=== PATIENT | female | born 2000 | race African-American/Black ===

== ENCOUNTER 2021-01-06 01:28 | Emergency (ER) | payer OTHER, SELFPAY ==
[2021-01-06] VITALS (15 sets, daily range): BP systolic 116–133; BP diastolic 75–81; PULSE 65–84; RESP 12–23; TEMP 36.6; O2SAT 100
--- NOTE | ~2021-01-06 | XR_ITS ---
EXAMINATION: XR chest 2V DATE: 01/06/2021 02:05 INDICATION: Midline chest pain. TECHNIQUE: Frontal and lateral views of the chest were obtained. COMPARISON: None. FINDINGS: The chest demonstrates clear lungs without pneumonia, pleural effusion, or pneumothorax. Th e heart size is normal. IMPRESSION: 1. No acute cardiopulmonary disease. Reviewed, dictated and finalized at location A.
--- NOTE | 2021-01-06 01:34 | ECG_ITS ---
Measurements Intervals [place] Rate: 72 P: 8 SD: 148 QRS: 30 QRSD: 71 T: 15 QT: 360 QTc: 394 Interpretive Statements SINUS RHYTHM NONSPECIFIC T-WAVE ABNORMALITY- INFERIOR LEADS BORDERLINE ECG Electronically Signed On 01-06-2021 7:15:04 CDT by Isrrael Suarez D.O.
[2021-01-06 02:02] LABS: Basophils Absolute Auto 0.1 K/mm3 (0.0-0.1); Basophils Percent Auto 0.7 % (0.2-1.2); Eosinophils Absolute Auto 0.1 K/mm3 (0-0.3); Eosinophils Percent Auto 1.8 % (0-4.4); Hematocrit 40.6 % (37.0-47.0); Hemoglobin 12.7 g/dL (12.0-15.0); Immature Granulocyte Absolute 0.01 K/mm3 (0.00-0.031); Immature Granulocyte Percent A 0.1 % (0-0.5); Lymphocytes Absolute Auto 2.71 K/mm3 (0.9-3.2); Lymphocytes Percent Auto 40.3 % (18.3-44.2); Mean Corpuscular HGB Conc 31.3 g/dl (32-36); Mean Corpuscular Hemoglobin 23.3 pg (26-34); Mean Corpuscular Volume 74.6 fl (80-100); Monocytes Absolute Auto 0.3 K/mm3 (0.1-0.6); Monocytes Percent Auto 4.9 % (2.6-8.5); Neutrophils Absolute Auto 3.5 K/mm3 (1.3-6.7); Neutrophils Percent Auto 52.2 % (45.5-73.1); Platelet Count Result 226 k/mm3 (150-375); Red Blood Count 5.44 M/mm3 (4.2-5.4); Red Cell Distribution Width 13.9 % (11.5-14.5); White Blood Count 6.7 K/mm3 (4.5-10.0)
[2021-01-06 02:11] LABS: Anion Gap 5 mmol/L (8-16); Blood Urea Nitrogen 12 mg/dL (8-21); Calcium 9.1 mg/dL (8.9-10.7); Carbon Dioxide 27 mmol/L (22-30); Chloride 107 mmol/L (98-107); Estimated CRCL calculation 110 ml/min; Estimated Glomerular Filt Rate > 60; Glucose 105 mg/dL (65-105); Potassium 4.1 mmol/L (3.4-5.0); Sodium 139 mmol/L (134-143)
[2021-01-06 02:23] LABS: Troponin I < 0.012 ng/mL (0.000-0.034)
[2021-01-06 02:38] LABS: Prothrombin Time 13.6 Seconds (11.1-14.7)
--- NOTE | 2021-01-06 02:39 | ED.CHESTPAIN ---
HPI - Chest Pain General Chief Complaint: Chest Pain Stated Complaint: nausea-abd cramps and chest tightness Time Seen by Provider: 01/06/21 02:34 Source: patient Mode of arrival: ambulatory Limitations: no limitations History of Present Illness HPI narrative: Patient is a 20-year-old female complaining of chest pain, midsternal, sharp, 6 out of 10, worse with movement started approximately 2 to 3 weeks ago. Patient denies any shortness of breath, abdominal pain, nausea, vomiting, diaphoresis, fever or chills. Related Data Allergies Allergy/AdvReac Type Severity Reaction Status Date / Time No Known Allergies Allergy Unknown Verified 01/06/21 01:30 Review of Systems Review of Systems: All systems reviewed & are unremarkable except as noted in HPI and below Constitutional: Constitutional: Denies body ache(s), Denies chills, Denies excessive sweating, Denies fatigue, Denies fever(s), Denies headache(s), Denies lethargy, Denies malaise, Denies weakness and Denies weight loss Eyes: Eyes: Denies blurry vision, Denies change in vision and Denies loss of vision ENT: Denies dizziness, Denies ear discharge, Denies headache(s), Denies lip swelling, Denies epistaxis, Denies nasal congestion, Denies neck pain, Denies throat swelling and Denies tongue swelling Cardiovascular: Cardiovascular: Denies chest pain with activity, Denies diaphoresis, Denies rapid heart rate, Denies edema, Denies irregular heart rhythm, Denies lightheadedness, Denies palpitations, Denies dyspnea and Denies dyspnea on exertion Respiratory: Respiratory: Denies chest congestion, Denies cough, Denies hemoptysis, Denies dyspnea and Denies dyspnea on exertion Gastrointestinal: Gastrointestinal: Denies abdominal pain, Denies melena, Denies hematochezia, Denies diarrhea, Denies nausea, Denies vomiting and Denies hematemesis Musculoskeletal: Musculoskeletal: Denies abnormal gait, Denies deformity, Denies joint swelling, Denies limited range of motion, Denies neck pain and Denies numbness Neurologic: Denies Abnormal speech present, Denies abnormal gait, Denies confusion, Denies dizziness, Denies headache(s), Denies focal weakness, Denies loss of vision, Denies numbness, Denies Other visual disturbances, Denies Sensory deficit (Neuro) and Denies weakness Psychiatric: Psychiatric: Denies confusion, Denies depression, Denies auditory hallucinations, Denies homicidal ideation and Denies suicidal ideation Endocrine: Endocrine: Denies cold intolerance, Denies excessive sweating, Denies fatigue, Denies heat intolerance and Denies palpitations Hematologic/Lymphatic: Hematologic/Lymphatic: Denies easy bleeding and Denies easy bruising Allergic/Immunologic: Allergic/Immunologic: Denies lip swelling, Denies throat swelling and Denies tongue swelling PMFSH Comments Past medical history: None Family history: Negative for MD or coronary disease Social history: Non-smoker no EtOH or drug use. Course Vital Signs Vital signs: Vital Signs Pulse Rate 73 01/06/21 01:38 Temperature 36.6 C 01/06/21 01:39 Pulse Rate 77 01/06/21 02:31 Respiratory Rate 20 01/06/21 02:31 Blood Pressure 123/81 01/06/21 02:31 Pulse Oximetry 100 01/06/21 01:39 MDM - Chest Pain MDM Narrative Medical decision making narrative: Heart score: 0, risk of any major coronary event is less than 1%. Patient's chest pain is atypical more likely musculoskeletal in origin. I have reviewed her labs and her chest x-ray. Her CBC chemistry within normal limits. Her cardiac enzymes negative. Her EKG shows no acute ischemia, normal EKG. Her chest x-ray is clear. Patient will be discharged home with a diagnosis of atypical chest pain, musculoskeletal pain. Lab Data Attestation: I reviewed the patient's lab results. Result diagrams: 01/06/21 01:49 01/06/21 01:49 Labs: Lab Results 01/06/21 01/06/21 01/06/21 Range/Units 01:49 01:49 01:49 WBC 6.7 (4.5-10.0) K/mm3 RB
[2021-01-06 02:41] LABS: Partial Thromboplastin Time 29.5 SECONDS (22.3-36.8)
[2021-01-06 03:19] LABS: D Dimer < 0.22 ug/mL (<0.48)
== END 2021-01-06 05:00 | disposition home or self-care (01) ==
PROVIDERS: Emergency Provider Emergency Medicine
DX: R07.89 Other chest pain (principal)
CPT/HCPCS: 36415; 71046; 80048; 84484; 85025; 85380; 85610; 85730; 93005; 99284

== ENCOUNTER 2022-02-27 08:03 | Emergency (ER) | payer OTHER, SELFPAY ==
--- NOTE | ~2022-02-27 | XR_ITS ---
EXAMINATION: XR wrist RT min 3V DATE: 02/27/2022 08:42 INDICATION: Right wrist pain. TECHNIQUE: 4 views of right wrist were obtained. COMPARISON: None. FINDINGS: Bone alignment is normal. No fracture. Joint spaces are well maintained. IMPRESSION: 1. Normal right wrist. Reviewed, dictated and finalized at location A. IMPRESSION: 1. Normal right wrist.
--- NOTE | ~2022-02-27 | US_ITS ---
EXAMINATION: US venous doppler UE RT DATE: 02/27/2022 09:41 INDICATION: Right upper extremity pain TECHNIQUE: Grayscale ultrasound images without and with compression and Doppler ultrasound images of the right upper extremity veins were obtained. COMPARISON: None. FINDINGS: The right internal jugular vein, subclavian vein, axillary vein, brachial veins, basilic vein, cephal ic vein, radial vein, and ulnar vein are patent. IMPRESSION: 1. No evidence of deep venous thrombosis. Reviewed, dictated and finalized at location A.
--- NOTE | ~2022-02-27 | XR_ITS ---
EXAMINATION: XR elbow RT min 3V DATE: 02/27/2022 08:42 INDICATION: Right elbow pain. TECHNIQUE: 4 views of right elbow were obtained. COMPARISON: None. FINDINGS: Bone alignment is normal. No fracture. Joint spaces are normal. There is no elbow joint eff usion. IMPRESSION: 1. Elbow joint effusion. No fracture identified. Reviewed, dictated and finalized at location A.
[2022-02-27 08:09] VITALS: BP 113/83; PULSE 84; RESP 18; TEMP 37.3; O2SAT 98
[2022-02-27] MEDS: IBUPROFEN 600 MG TABLET PO (08:26)
[2022-02-27 09:57] LABS: Basophils Percent Auto 0.5 % (0.2-1.2); Eosinophils Percent Auto 0.7 % (0-4.4); Hematocrit 44.9 % (37.0-47.0); Hemoglobin 14.1 g/dL (12.0-15.0); Lymphocytes Absolute Auto 2.11 K/mm3 (0.9-3.2); Lymphocytes Percent Auto 34.4 % (18.3-44.2); Mean Corpuscular HGB Conc 31.4 g/dl (32-36); Mean Corpuscular Hemoglobin 23.9 pg (26-34); Monocytes Absolute Auto 0.3 K/mm3 (0.1-0.6); Monocytes Percent Auto 5.1 % (2.6-8.5); Neutrophils Absolute Auto 3.6 K/mm3 (1.3-6.7); Neutrophils Percent Auto 59.3 % (45.5-73.1); Platelet Count Result 224 k/mm3 (150-375); Red Blood Count 5.91 M/mm3 (4.2-5.4); Red Cell Distribution Width 14.4 % (11.5-14.5); White Blood Count 6.1 K/mm3 (4.5-10.0)
[2022-02-27 10:11] LABS: Alanine Aminotransferase 21 U/L (6-35); Albumin Level 4.5 g/dL (3.5-5.1); Alkaline Phosphatase 70 U/L (38-126); Anion Gap 6 mmol/L (8-16); Aspartate Amino Transferase 19 U/L (14-36); Bilirubin,Total 0.2 mg/dL (0.2-1.3); Blood Urea Nitrogen 9 mg/dL (7-17); Calcium 8.9 mg/dL (8.4-10.2); Carbon Dioxide 22 mmol/L (22-30); Chloride 109 mmol/L (98-107); Estimated CRCL calculation 107 ml/min; Estimated Glomerular Filt Rate > 60; Glucose 101 mg/dL (65-110); Potassium 4.1 mmol/L (3.4-5.0); Sodium 137 mmol/L (137-145)
[2022-02-27 10:13] LABS: INR 1.2; Prothrombin Time 14.5 Seconds (11.1-14.7)
[2022-02-27 10:14] LABS: Partial Thromboplastin Time 30.8 SECONDS (22.3-36.8)
[2022-02-27 11:18] LABS: Erythrocyte Sedimentation Rate 1 mm/hr (0-20)
[2022-02-27 11:19] LABS: CRP 0.8 mg/dL (<1.0)
--- NOTE | 2022-02-27 11:29 | ED.GENADULT ---
HPI - General Adult General Chief complaint: Extremity Injury, Upper Stated complaint: right arm pain Time Seen by Provider: 02/27/22 08:11 Source: RN notes reviewed History of Present Illness HPI narrative: Patient presents emerged part from home for right elbow pain. Patient states symptoms began yesterday. Patient states she has pain in her right lateral elbow that radiates into her right forearm. She denies any trauma or injury states the pain is worse when she fully extends her arm. She states she does wear [employer] and is using her arms for. States that the pain does radiate to the wrist at times she denies any shoulder pain she denies any numbness or tingling in the extremities denies any fevers or chills or any other symptoms Related Data Home Medications Medication Instructions Recorded Confirmed medroxyprogesterone 150 mg/mL 150 mg IM [id number] 11/24/21 intramuscular suspension (Depo-Provera) Allergies Allergy/AdvReac Type Severity Reaction Status Date / Time No Known Allergies Allergy Unknown Verified 02/27/22 08:19 Review of Systems Review of Systems: Gen.: Denies fevers or chills Musculoskeletal: See HPI Neuro: Denies numbness, tingling, weakness Skin: Denies rash Endo: Denies DM PMFSH Past Medical History Medical History Surveillance for Depo-Provera contraception Social History Social History (Updated 02/27/22 @ 11:30 by Damian Rosas DO) Smoking status: Never smoker Exam Narrative: APPEARANCE: No acute distress, nontoxic, resting in bed Eyes: EOMI HEENT: Normocephalic, atraumatic, RESPIRATORY: No respiratory distress MUSCULOSKELETAl: Tender palpation over the right lateral elbow with tenderness in the region of the radial head tenderness extends into the mid forearm there is no swelling or erythema over the right elbow the compartments of the right forearm are soft mild tenderness over the right lateral wrist with no swelling or ecchymosis of the wrist and full range of motion of the wrist, pain with full extension of the right elbow no tenderness of the right shoulder full flexion-extension of all 5 MCP joints, radial pulse 2+ neurovascular intact NEURO: Awake and alert. Following commands, speech normal, no focal deficits SKIN:: Warm, dry. Normal Color no rash or lesions Course Course Emergency Course: Called and discussed with [employer] for Dr. Fish who discussed with Dr. Oropeza recommends inflammatory markers and if negative patient may be discharged with sling and anti-inflammatories with follow-up as an outpatient Discussed with patient results of workup and diagnosis. Discussed need for follow-up with primary care, proper use of medication, and reasons to return to the emergency department. Patient understands and agrees to current treatment plan Vital Signs Vital signs: Vital Signs Temperature 99.1 F 02/27/22 08:09 Pulse Rate 84 02/27/22 08:09 Respiratory Rate 18 02/27/22 08:09 Blood Pressure 113/83 02/27/22 08:09 Pulse Oximetry 98 02/27/22 08:09 Oxygen Delivery Room Air 02/27/22 08:09 Temperature 99.1 F 02/27/22 08:09 Pulse Rate 84 02/27/22 08:09 Respiratory Rate 18 02/27/22 08:09 Blood Pressure 113/83 02/27/22 08:09 Pulse Oximetry 98 02/27/22 08:09 Oxygen Delivery Room Air 02/27/22 08:09 Medical Decision Making [facility] Narrative Medical decision making narrative: Patient with right elbow pain since yesterday nontraumatic she does have a small joint effusion question of a nondisplaced radial head fracture the patient has no overlying erythema or swelling with no signs of infection his CBC was within normal limits with no shift and inflammatory markers were also negative ultrasound of the right upper extremity shows no signs of blood clots. This time doubt infectious process discussed with orthopedics they recommended arm sling anti-inflammatories with follow-up as an
[2022-02-27 11:40] VITALS: BP 123/74; PULSE 85; RESP 14; O2SAT 96
== END 2022-02-27 11:40 | disposition home or self-care (01) ==
PROVIDERS: Emergency Provider Emergency Medicine
DX: M25.521 Pain in right elbow (principal)
CPT/HCPCS: 36415; 73080; 73110; 80053; 85025; 85610; 85652; 85730; 86140; 93971; 99284; A4565; A9270

== ENCOUNTER 2022-05-04 08:00 | Outpatient (RCR) | payer OTHER, SELFPAY ==
--- NOTE | 2022-03-09 11:21 | PTOPEVAL ---
PHYSICAL THERAPY INITIAL EVALUATION. Thank you for referring Kasandra Blunt to [facility].? The patient is scheduled to be seen for therapy? 1x/week for 4 weeks. Please review, sign, date and return this plan of care DANIELLA. I agree with and certify that the following plan of care is medically necessary. Referring Physician Date Attending Provider: Kole Fish MD *PT Outpatient Evaluation Start: 03/09/22 Evaluation Information Diagnosis R elbow pain Onset 10 days Subjective Information Pt states she woke up in the Query Text:As Reported By Patient/ morning on 02/27 with pain so Family significant it sent her to the ED. She states she was unable to extend her elbow. She has been wearing a sling since. She report pain from her elbow to her wrist. 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: 35lb, 25lb, 25lb R gun numberer strength: 15lb, 10lb, 10lb - painful resisted wrist extension with elbow bent and straight Posture Head/C-Spine Posture Forward Head Thoracic Spine Posture Increased Kyphosis Shoulder Posture (L) Rounded,(R) Rounded,(L) Forward,(R) Forward Palpation Assessment Palpation tender at lateral epicondyle and lateral shaft of forearm Special Tests-Upper Extremity Upper Limb Tension Test: Radial Positive Right Upper Limb Tension Test:Median Positive Right Upper Limb Tension Test:Ulnar Positive Right Elbow Special Tests Tinnel's Cubital Positive Right Cozen's Positive Right Safety Assessment Factors Affecting Safety No Concerns General Exercise Exercise Description - demonstration and Query Text:Record Sets, Reps, instruction in nerve glides - Resistance, and Position radial, medial, and ulnar
--- NOTE | 2022-04-06 08:45 | PTOPEVAL ---
PHYSICAL THERAPY PROGRESS REPORT. Thank you for referring Kasandra Blunt to [facility] [place].? The patient is scheduled to be seen for therapy? 1x/week for 4 weeks. Please review, sign, date and return this plan of care DANIELLA. I agree with and certify that the following plan of care is medically necessary. Referring Physician Date Attending Provider: Kole Fish MD Evaluation Information Diagnosis R elbow pain Onset 1 month Subjective Information Pt states she elbow is doing Query Text:As Reported By Patient/ good. She states she has no Family more pain at rest. Pt states about half was through her shift her elbow will start to hurt but it is a tolerable ache. Pt states therapy has really been helping, she states the exercises help some but manual therapy helps the most. 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, 25lb, 25lb R estate planner strength: 38lb, 25lb, 30lb L elbow flexion 5/5 R elbow flexion 4+/5 L elbow extension 4+/5 R elbow extension 4-/5 L wrist extension 4/5 R wrist extension 3+/5 Posture Head/C-Spine Posture Forward Head Thoracic Spine Posture Increased Kyphosis Shoulder Posture (L) Rounded,(R) Rounded,(L) Forward,(R) Forward Palpation Assessment Palpation mild tenderness along lateral forearm Special Tests-Upper Extremity Upper Limb Tension Test: Radial Negative Right Upper Limb Tension Test:Median Negative Right Upper Limb Tension Test:Ulnar Negative Right Safety Assessment Factors Affecting Safety No Concerns PT Clinical Summary Kasandra presents to therapy today for her progress report
--- NOTE | 2022-04-21 08:45 | PCPTNOTE ---
Patient no showed to appointment this date. Patient was called and states she forgot her appointment today. Confirmed with patient upcoming appointment.
--- NOTE | 2022-05-04 08:50 | PTOPEVAL ---
PHYSICAL THERAPY PROGRESS REPORT AND DISCHARGE SUMMARY. Thank you for referring Kasandra Blunt to [facility].? The patient is to be discharged from skilled therapy services at this time. Please review, sign, date and return this plan of care DANIELLA. I agree with and certify that the following plan of care is medically necessary. Referring Physician Date Attending Provider: Kole Fish MD *PT Outpatient Evaluation Start: 03/09/22 Evaluation Information Diagnosis R elbow pain Onset 10 days Subjective Information Pt reports she elbow is doing Query Text:As Reported By Patient/ better, she states it has not Family been hurting at all. She reports no increase in pain during work, she continues to wear a compression sleeve. Pain Assessment Right Elbow(s) Reported Pain Level 0 Greatest Pain Intensity 4 Upper Extremity Range of Motion Gross Upper Extremity Range of Motion R elbow active flex - 140 Comments R elbow active ext - 0 L elbow AROM flex/ext 0-145 equal wrist flexion and extension sahara with elbow flexed vs extended Upper Extremity Muscle Strength Testing Gross Upper Extremity Strength Comments R elbow flex/ext 4+/5 L elbow flex/ext 4+/5 Sahara wrist ext 5/5 Palpation Assessment Palpation mild tenderness along lateral forearm - resolved Improved soft tissue extensibility Safety Assessment Factors Affecting Safety No Concerns PT Clinical Summary Kasandra presents to therapy today for her progress report following 7 visits of therapy to treat her diagnosis of R elbow pain. Today she reports 80% improvement in overall symptoms. Today she demonstrates active and passive elbow and wrist motion that is equal bilaterally. She also demonstrates equal wrist and elbow motion. She continues to report a tender spot in her proximal forearm but was educated on cross friction massage this date. Kasandra has progressed well towards all of her therapy goals and has met a
== END 2022-05-04 13:19 | disposition home or self-care (01) ==
LOC: ANHPT 08:00
PROVIDERS: Visit Provider Orthopaedic Surgery
DX: M25.521 Pain in right elbow (principal)
CPT/HCPCS: 97035; 97110; 97112; 97140; 97161

== ENCOUNTER 2023-02-09 10:38 | Emergency (ER) | payer OTHER, SELFPAY ==
--- NOTE | ~2023-02-09 | XR_ITS ---
EXAMINATION: XR chest 1V portable INDICATION: Cough TECHNIQUE: Portable AP chest at 1241 hours COMPARISON: 01/06/2021 FINDINGS: The lungs are free of acute opacities. No pleural effusion or pneumothorax. The cardiomedia stinal silhouette is normal. IMPRESSION: 1. No acute cardiopulmonary abnormality. Reviewed, dictated and finalized at location B.
[2023-02-09 10:40] VITALS: BP 132/79; PULSE 94; RESP 20; TEMP 36.9; O2SAT 98
[2023-02-09 11:30] VITALS: RESP 16
[2023-02-09 12:08] LABS: Influenza A QL RT-PCR Negative (Negative); Influenza B QL RT-PCR Negative (Negative); RSV RNA, RT-PCR Negative (Negative); SARS-CoV-2 RNA PCR Positive (Negative)
[2023-02-09] MEDS: ACETAMINOPHEN 500 MG TABLET 1000 MG PO (12:46)
[2023-02-09] MEDS: KETOROLAC 30 MG/ML VIAL (*BKC) IM (12:47)
[2023-02-09] MEDS: SODIUM CHLORIDE 0.9% IV 1,000 ML 999 ML IV CONT (13:07)
[2023-02-09] MEDS: ONDANSETRON INJ 4 MG/2 ML VIAL IV PUSH (13:07)
[2023-02-09 13:18] LABS: Basophils Percent Auto 0.6 % (0.2-1.2); Eosinophils Percent Auto 0.1 % (0-4.4); Hematocrit 41.7 % (37.0-47.0); Hemoglobin 13.1 g/dL (12.0-15.0); Immature Granulocyte Absolute 0.03 K/mm3 (0.00-0.031); Immature Granulocyte Percent A 0.4 % (0-0.5); Lymphocytes Percent Auto 4.4 % (18.3-44.2); Mean Corpuscular HGB Conc 31.4 g/dl (32-36); Mean Corpuscular Hemoglobin 23.4 pg (26-34); Mean Corpuscular Volume 74.3 fl (80-100); Mean Platelet Volume 11.7 fl (7.4-10.4); Monocytes Absolute Auto 0.6 K/mm3 (0.1-0.6); Monocytes Percent Auto 8.8 % (2.6-8.5); Neutrophils Absolute Auto 5.8 K/mm3 (1.3-6.7); Neutrophils Percent Auto 85.7 % (45.5-73.1); Platelet Count Result 173 k/mm3 (150-375); Red Blood Count 5.61 M/mm3 (4.2-5.4); Red Cell Distribution Width 13.7 % (11.5-14.5); White Blood Count 6.8 K/mm3 (4.5-10.0)
[2023-02-09 13:28] LABS: Anion Gap 6 mmol/L (8-16); Blood Urea Nitrogen 4 mg/dL (7-17); Calcium 8.8 mg/dL (8.4-10.2); Carbon Dioxide 26 mmol/L (22-30); Chloride 104 mmol/L (98-107); Estimated CRCL calculation 93 ml/min; Estimated Glomerular Filt Rate > 60; Glucose 94 mg/dL (65-110); Potassium 3.6 mmol/L (3.4-5.0); Sodium 136 mmol/L (137-145)
[2023-02-09 13:34] LABS: Anisocytosis 1+ (NORMAL); Platelet Estimate Adequate (Adequate); Schistocytes None Seen (NORMAL)
--- NOTE | 2023-02-09 14:14 | ED.GENADULT ---
HPI - General Adult General Chief complaint: Unspecified Stated complaint: body hurts all over Time Seen by Provider: 02/09/23 11:31 History of Present Illness HPI narrative: Kasandra Blunt is a 22 y/o female who presents with reports of sinus congestion/ sore throat/ cough that started yesterday. She reports that she has felt hot and cold but unaware of having any fevers. Denies shortness of breath. Related Data Allergies Allergy/AdvReac Type Severity Reaction Status Date / Time No Known Allergies Allergy Unknown Verified 02/09/23 12:03 Review of Systems Review of Systems: CONSTITUTIONAL: Denies fever, chills, or sweats. EYES: Denies visual changes, redness, or discharge. ENT: Reports nasal congestion/ sore throat denies ear pain CARDIOVASCULAR: Denies chest pain, palpitations, or edema. RESPIRATORY: Denies cough or dyspnea. GASTROINTESTINAL: Denies abdominal pain, nausea, vomiting, or diarrhea. GENITOURINARY: Denies dysuria or hematuria. SKIN: Denies rash or itching. MUSCULOSKELETAL: Denies back pain, joint pain, or myalgia. NEUROLOGIC: Denies headache, numbness, dizziness, or weakness. PSYCHIATRIC: Denies anxiety or depression. [facility] Past Medical History Medical History Calcification of breast (~2016) Encounter for gynecological examination Strain of elbow Surveillance for Depo-Provera contraception Family History Family History Grandparent Breast cancer maternal grandmother Brain cancer maternal grandmother Social History Social History Smoking status: Never smoker Alcohol intake: never Substance use: never Substance use type: does not use Living arrangements: with family Occupation/Education: occupation Gender identity (if verbalized by the patient): Female Sexual Orientation (if Verbalized by the Patient): Straight or Heterosexual Exam Narrative: GENERAL: well-nourished, and in no acute distress. HEAD: Normocephalic, atraumatic. EYES: PERRLA and EOMI. ENT: nasal sinus congestion/ slight maxillary tenderness with palpation, TM's obscured with wax, oral pharynx intact no edema or erythema appreciated NECK: Supple. No adenopathy or masses. No carotid bruits or JVD CHEST: Clear to auscultation. No respiratory distress. No wheezes rales or rhonchi HEART: Regular rate and rhythm. No murmur heard. Normal peripheral pulses. ABDOMEN: Soft, nontender, nondistended, normal active bowel sounds. EXTREMITIES: Normal range of motion. No edema. SKIN: Warm, dry, no rash. NEURO: No focal deficits. Alert and oriented x3. PSYCH: Normal mood and affect. Course Vital Signs Vital signs: Vital Signs Temperature 36.9 C 02/09/23 10:40 Pulse Rate 94 02/09/23 10:40 Respiratory Rate 20 02/09/23 10:40 Blood Pressure 132/79 02/09/23 10:40 Pulse Oximetry 98 02/09/23 10:40 Oxygen Delivery Room Air 02/09/23 10:40 Temperature 36.9 C 02/09/23 10:40 Pulse Rate 94 02/09/23 10:40 Respiratory Rate 16 02/09/23 11:30 Blood Pressure 132/79 02/09/23 10:40 Pulse Oximetry 98 02/09/23 10:40 Oxygen Delivery Room Air 02/09/23 10:40 Medical Decision Making [facility] Narrative Medical decision making narrative: On exam pt is resting on stretcher, RR even unlabored, Lung sounds clear, Abdomen soft, bowel sounds present No abdominal pain with palpation Patient with nasal congestion/ cough/ sore throat started yesterday feeling warm with chills Concern for: URI/ Covid/ Flu/strep/ pneumonia/anemia IM ketoralac given PO tylenol given and pt started to have nausea/ IV started with zofran 1L IV fluids CBC/CMP - labs stable chest x ray - stable no acute findings Patient re-evaluated after fluids and zofran and reports feeling better, updated pt that she has Covid and will need to continue sympt
[2023-02-09 14:50] VITALS: BP 138/70; PULSE 92; RESP 16; TEMP 37.1; O2SAT 97
== END 2023-02-09 15:00 | disposition home or self-care (01) ==
PROVIDERS: Emergency Provider Nurse Practitioner Family; PCP Family Medicine
DX: U07.1 COVID-19 (principal)
CPT/HCPCS: 36415; 71045; 80048; 85025; 87637; 96361; 96372; 96374; 99284; A9270; J1885; J2405; J7030